=== PATIENT | female | born 1960 | race Caucasian/White ===

== ENCOUNTER 2023-09-13 11:18 | Outpatient (REF) | payer MEDICAID, SELFPAY ==
[2023-09-13 14:43] LABS: Alanine Aminotransferase 30 U/L (0-31); Albumin Level 4.9 g/dL (3.5-5.0); Alkaline Phosphatase 50 U/L (39-117); Anion Gap 13 (12-20); Aspartate Amino Transferase 32 U/L (5-31); Bilirubin Direct 0.4 mg/dL (0.0-0.5); Bilirubin Total 1.5 mg/dL (0.0-1.0); Blood Urea Nitrogen 17 mg/dL (9-16); Calcium 9.9 mg/dL (8.4-10.2); Carbon Dioxide 30 mmol/L (22-29); Chloride 100 mmol/L (96-108); Cholesterol 213 mg/dL (<200); Estimated Glomerular Filt Rate > 60; Glucose Random 89 mg/dL (60-115); HDL Cholesterol 53 mg/dL (>40); LDL Cholesterol Calculated 140 mg/dL (<100); Potassium 3.8 mmol/L (3.3-5.1); Sodium 139 mmol/L (135-145); Total Protein 8.2 g/dL (6.5-8.0); Triglycerides 104 mg/dL (<150)
== END 2023-09-13 11:19 | disposition home or self-care (01) ==
LOC: HO.CHCLDS 11:18
PROVIDERS: Visit Provider Student in an Organized Health Care Education/Training Program
DX: R03.0 Elevated blood-pressure reading, without diagnosis of hypertension (principal)
CPT/HCPCS: 36415; 80048; 80061; 80076

== ENCOUNTER 2024-11-26 10:19 | Outpatient (REF) | payer MEDICAID, SELFPAY ==
--- OUTSIDE RECORDS SUMMARY | 2024-11-26 11:20 | XMS_ITS | Encounter Summary ---
Author Organization [email or web address] Address [address] [facility] [address] [place] [address] Care Team Providers Care Gambreler Name Role Phone Ena Funk MD Primary Care Provider [phone] Encounter Details Date Type Department Care Team (Latest Contact Info) Description 11/26/2024 Travel Social History Tobacco Use Types Packs/Day Years Used Date Smoking Tobacco: Never Smokeless Tobacco: Never Alcohol Use Standard Drinks/Week Comments Never 0 (1 standard drink = 0.6 oz pur e alcohol) Depression Answer Date Recorded Patient Health Questionnaire-9 Score 3 02/28/2024 Patient Health Questionnaire-9 Score 3 02/28/2024 Last PHQ-9: Questionnaire Data Not on file 0 02/28/2024 Housing Stability Answer Date Recorded What is your housing situation today? I have joss lema 09/05/[address] you li ve. Do you have problems with any of the following? None of the above 09/05/2023 Food Insecurity Answer Date Recorded Within the past 12 months, y ou worried that your food would run out before you got money to buy more: Never True 09/05/2023 Within the past 12 months,th e food you bought just didn't last and you didn't have enough money to get more: Never True 11/2022 Transportation Answer Date Recorded In the past 12 months, has l ack of transportation kept you from medical appts, meetings, work or from getting things needed for daily living? No 09/05/2023 Utilities Answer Date Recorded In the past 12 months, has t he electric, gas, oil or water company threatened to shut off services in your home? No 09/05/2023 Depression Answer Date Recorded Patient Health Questionnaire-2 Score 1 02/28/2024 Comments No Sex and Gender Information Value Date Recorded Sex Assigned at Female 09/04/2022 10:20 AM EDT Legal Sex Female 10:20 AM EDT Gender Identity Female 09/04/2022 10:20 AM EDT Sexual Orientation Straight 09/04/2022 10 :20 AM EDT documented as of this encounter Plan of Treatment Upcoming Encounters Date Type Department Care Team (Late st Contact Info) Description 12/09/2024 1:00 PM EST Clinical Support [facility] [address] [place] [address] documented as of this encounter Visit Diagnoses Not on filedocumented in this encounter Additional Health Concerns Assessment Noted Time PHQ-9 Depression Total Score: 3 02/28/20 24 4:34 PM EDT documented as of this encounter Care Teams Gambreler Relationship Specialty Start Date End Date Ena Funk MD [address] [place] [id number] PCP - General Family Medicine 12/05/13 documented as of this encounter
--- OUTSIDE RECORDS SUMMARY | 2024-11-26 11:20 | XMS_ITS | Encounter Summary ---
Author Organization [employer] Address [address] [facility] [address] [place] [address] Care Team Providers Care Hydropulper Operator Name Role Phone Ena Funk MD Primary Care Provider [phone] Reason for Referral * Consultation (Routine) - Authorized Specialty Diagnoses / Procedures Referred By Renee vasquez Referred To Contact Midwifery Diagnoses Lichen sclerosus Ena Funk MD [address] [place] [address] Phone: tel: fax: Noelle Newton, [facility] [address] [place] [address] Phone: tel: fax: Referral ID Status Reason Start Date Expiration Date Visits Requested Visits Authorized [id number] Authorized Consult and Treat 11/26/2024 11/26/2025 1 1 * Imaging (Routine) - Authorized Specialty Diagnoses / Procedures Referred By Renee vasquez Referred To Contact Radiology Diagnoses Encounter for screening mammogram for breast cancer Procedures BI Mammogram Screening Tomosynthesis Bilateral Ena Funk MD [address] [place] [address] Phone: tel: fax: [facility] [address] [place] [address] Phone: tel: fax: Referral ID Status Reason Start Date Expiration Date V isits Requested Visits Authorized [id number] Authorized 11/26/2024 11/26/2025 1 1 Reason for Visit * Reason Comments Annual Exam Encounter Details Date Type Department Care Team (Late st Contact Info) Description 11/26/2024 9:30 AM EST Office Visit [facility] [address] [facility] [place] [address] Ena Funk MD [address] [place] [address] Elevated BP without diagnosis of hypertension (Primary Dx); PTSD (post-traumatic stress disorder); Encounter for screening for malignant neoplasm of colon; Encounter for screening mammogram for breast cancer; Screen for STD (sexually transmitted disease); Encounter for annual wellness visit; Lichen sclerosus Social History Tobacco Use Types Packs/Day Years Used Date Smoking Tobacco: Never Smokeless Tobacco: Never Tobacco Cessation:Counseling Given: Not Answered Alcohol Use Standard Drinks/Week Comments Never 0 [...] AM EDT documented as of this encounter Last Filed Vital Signs Vital Sign Reading Time Taken Comments Blood Pressure 158/102 11/26/2024 9:41 AM EST Pulse 72 11/26/2024 9:41 AM EST Temperature 36.6 ??C (97.9 ??F) 11/26/2024 9:41 AM ES T Respiratory Rate 20 11/26/2024 9:41 AM EST Oxygen Saturation 98% 11/26/2024 9:41 AM EST Inhaled Oxygen Concentration - - Weight 48.1 kg (106 lb) 11/26/2024 9:41 AM EST Height 154.9 cm (5' 1 ) 11/26/2024 9:41 AM EST Body Mass Index 20.03 11/26/2024 9:41 AM EST documented in this encounter Progress Notes * Ena Funk MD - 11/26/2024 9:30 AM EST Subjective Patient ID: Amandeep Woodruff is a 63 y.o. female who presents for Annual Exam. Is here for Annual PE Hypertension This is a recurrent problem. The problem is unchanged. Associated symptoms include anxiety. Pertinent negatives include no chest pain, headaches, neck pain, palpitations or shortness of breath. Risk factors: anxiety. Review of Systems Constitutional: Negative. Respiratory: Negative. Negative for shortness of breath. Cardiovascular: Negative for chest pain and palpitations. Gastrointestinal: Negative. Genitourinary: Negative. Musculoskeletal: Negative for neck pain. Neurological: Negative for headaches. Psychiatric/Behavioral: The patient is nervous/anxious. Objective Physical Exam Constitutional: Appearance: Normal appearance. HENT: Head: Normocephalic and atraumatic. Right Ear: Tympanic membrane normal. Left Ear: Tympanic membrane normal. Mouth/Throat: Mouth: Mucous membranes are moist. Eyes: Pupils: Pupils are equal, round, and reactive to light. Cardiovascular: Rate and Rhythm: Normal rate and regular rhythm. Pulmonary: Effort: Pulmonary effort is normal. Breath sounds: Normal breath sounds. Abdominal: General: Abdomen is flat. Palpations: Abdomen is soft. Musculoskeletal: General: Normal range of motion. Skin: General: Skin is warm. Neurological: General: No focal deficit present. Mental Status: She is alert. Psychiatric: Mood and Affect: Mood normal. Behavior: Behavior normal. Assessment/Plan Diagnoses and all orders for this visit: Elevated BP without diagnosis of hypertension Comments: White coat syndrome Advised to keep log of BP F/u in1 week with RN Maintain a low-sodium diet (less than 2 grams per day). Maintain a regular cardiovascular exercise program. Advised to maintain a low-fat, low-cholesterol diet. Counseled regarding importance of weight loss. Counseled re: potential co-morbidities including cardiovascular disease. Orders: - Basic Metabolic Panel; Future - Hepatic Function Panel; Future - Lipid Panel, Standard; Future PTSD (post-traumatic stress disorder) Comments: Much improved Encounter for screening for malignant neoplasm of colon Encounter for screening mammogram for breast cancer - BI Mammogram Screening Tomosynthesis Bilateral; Future Screen for STD (sexually transmitted disease) - HIV-1/2 Antigen and Antibodies, Fourth Generation, with Reflexes; Future - Hepatitis C Antibody with Reflex to HCV, RNA, Quantitative, Real-Time PCR; Future Encounter for annual wellness visit Lichen sclerosus Comments: referred to Noelle Orders: - Referral to Gynecology (Noelle); Future Other orders - Blood Pressure kit; Check blood pressure daily documented in this encounter Plan of Treatment Upcoming Encounters Date Type Department Care Team (Late st Contact Info) Description 12/09/2024 1:00 PM EST Clinical Support [facility] & P[facility] [address] [place] [phone] Scheduled Orders Name Type Priority Associated Diagnoses Orde r Schedule HIV-1/2 Antigen and Antibodies, Fourth Generation, with Reflexes Lab Routine Screen for STD (sexually transmitted disease) Expected: 11/26/2024 (Approximate), Expires: 11/26/2025 Hepatitis C Antibody with Reflex to HCV, RNA, Quantitative, Real-Time PCR Lab Routine Screen for STD (sexually transmitted disease) Expected: 11/26/2024, Expires: 11/26/2025 BI Mammogram Screening Tomosynthesis Bilateral Imaging Routine Encounter for screening mammogram for breast cancer Expected: 11/26/2024, Expires: 01/24/2026 Basic Metabolic Panel Lab Routine Elevated BP without diagnosis of hypertension Expected: 11/26/2024 (Approximate), Expires: 11/26/2025 Hepatic Function Panel Lab Routine Elevated BP without diagnosis of hypertension Expected: 11/26/2024 (Approximate), Expires: 11/26/2025 Lipid Panel, Standard Lab Routine Elevated BP without diagnosis of hypertension Expected: 11/26/2024 (Approximate), Expires: 11/26/2025 Scheduled Referrals Name Type Priority Associated Diagnoses Order Schedule Referral to Gynecology (Noelle) Outpatient Referral Routine Lichen sclerosus Expected: 11/26/2024 (Approximate), Expires: 11/26/2025 documented as of this encounter Visit Diagnoses Diagnosis Elevated BP without diagnosis of hypertension- Primary PTSD (post-traumatic stress disorder) Posttraumatic stress disorder Encounter for screening for malignant neoplasm of colon Encounter for screening mammogram for breast cancer Screen for STD (sexually transmitted disease) Screening examination for venereal disease Encounter for annual wellness visit Lichen sclerosus Circumscribed scleroderma documented in this encounter Additional Health Concerns Assessment Noted Time PHQ-9 Depression Total Score: 3 02/28/20 24 4:34 PM EDT documented as of this encounter Care Teams Hydropulper Operator Relationship Specialty Start Date End Date Ena Funk MD [address] [place] [id number] PCP - General Family Medicine 12/05/13 documented as of this encounter
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
--- OUTSIDE RECORDS SUMMARY | 2024-11-26 11:21 | XMS_ITS | Encounter Summary ---
Author Organization [email or web address] Address [address] [facility] [address]t [place] [address] Care Team Providers Care Chief Accounting Officer Name Role Phone Ena Funk MD Primary Care Provider [phone] Encounter Details Date Type Department Care Team (Latest Contact Info) Description 10/19/2021 Abstract [facility] CONVERSIONS Dental, Provider, DDS Social History Tobacco Use Types Packs/Day Years Used Date Smoking Tobacco: Never Assessed Comments Unknown Sex and Gender Information Value Date Recorded [...] Clinical Support [facility] [address] [place] [address] documented as of this encounter Visit Diagnoses Not on filedocumented in this encounter Care Teams Chief Accounting Officer Relationship Specialty Start Date End Date Ena Funk MD [address] [place] [id number] PCP - General Family Medicine 12/05/13 documented as of this encounter
--- OUTSIDE RECORDS SUMMARY | 2024-11-26 11:21 | XMS_ITS | Encounter Summary ---
Author Organization [employer] Address [address] [facility] [address] [place] [address] Care Team Providers Care Judge Name Role Phone Ena Funk MD Primary Care Provider Encounter Details Date Type Department Care Team (Latest Contact Info) Description 05/26/[address] [facility] CONVERSIONS Dental, Provider, DDS Social [...] Description 12/09/2024 1:00 PM EST Clinical Support [facility] [address] [place] [address] documented as of this encounter Visit Diagnoses Not on filedocumented in this encounter Care Teams Judge Relationship Specialty Start Date End Date Ena Funk MD [address] [place] [id number] PCP - General Family Medicine 12/05/13 documented as of this encounter
--- OUTSIDE RECORDS SUMMARY | 2024-11-26 11:21 | XMS_ITS | Encounter Summary ---
Author Organization [employer] Address [address] [facility] [address] [place] [address] Care Team Providers Care Line Maintainer Name Role Phone Ena Funk MD Primary Care Provider [phone] Reason for Visit * Reason Comments Pre-visit Planning SDOH unable to reach LVM Encounter Details Date Type Department Care Team ([facility] Contact Info) Description 11/17/2024 Patient Outreach [facility] [address] [place] [address] Ena Funk MD [address] [place] [address] Pre-visit Planning (SDOH unable to reach LVM) Social History Tobacco Use Types Packs/Day Years [...] Patient Health Questionnaire-2 Score 1 02/28/2024 Comments Unknown Sex and Gender Information Value Date Recorded Sex Assigned at Female 09/04/2022 10:20 AM EDT Legal Sex Female 10:20 AM EDT Gender Identity Female 09/04/2022 10:20 AM EDT Sexual Orientation Straight 09/04/2022 10 :20 AM EDT documented as of this encounter Progress Notes * Abimbola Alatorre - 11/17/2024 1:56 PM EST KATY Ross placed outbound call to patient to complete pre-visit planning. No answer at this time. Patient name and were not confirmed. CC left voicemail requesting return call. Direct contactinformation provided. documented in this encounter Plan of Treatment Upcoming Encounters Date Type Department Care Team (Late st Contact Info) Description 12/09/2024 1:00 PM EST Clinical Support [facility] MED & PEDS [address] [place] [address] documented as of this encounter Visit Diagnoses Not on filedocumented in this encounter Additional Health Concerns Assessment Noted Time PHQ-9 Depression Total Score: 3 02/28/20 24 4:34 PM EDT documented as of this encounter Care Teams Line Maintainer Relationship Specialty Start Date End Date Ena Funk MD [address] [place] [address] PCP - General Family Medicine 12/05/13 documented as of this encounter
--- OUTSIDE RECORDS SUMMARY | 2024-11-26 11:21 | XMS_ITS | Encounter Summary ---
Author Organization [employer] Address [address] [facility] [address] [place] [address] Care Team Providers Care Carpenter General Name Role Phone Ena Funk MD Primary Care Provider [phone] Reason for Visit * Reason Onset Date Comments Chart prep 11/25/2024 Encounter Details Date Type Department Care Team ([facility] st Contact Info) Description 11/25/2024 Telephone C [facility] [address] [place] [address] Ena Funk MD [address] [place] [address] Chart prep Social History Tobacco Use Types Packs/Day Years [...] AM EDT documented as of this encounter Miscellaneous Notes * Telephone Encounter - Pamela Saldivar [place] - 11/25/2024 2:14 PM EST Chart Prep Labs: done Images: done Vaccines due: yes Referrals: complete Screenings: colonoscopy , mammogram , STI screening Overdue care gaps: SDOH documented in this encounter Plan of Treatment Upcoming Encounters Date Type Department Care Team (Late st Contact Info) Description 12/09/2024 1:00 PM EST Clinical Support [facility] [address] [place] [address] documented as of this encounter Visit Diagnoses Not on filedocumented in this encounter Additional Health Concerns Assessment Noted Time PHQ-9 Depression Total Score: 3 02/28/20 24 4:34 PM EDT documented as of this encounter Care Teams Carpenter General Relationship Specialty Start Date End Date Ena Funk MD [address] [place] [id number] PCP - General Family Medicine 12/05/13 documented as of this encounter
[2024-11-26 14:40] LABS: Alanine Aminotransferase 17 U/L (0-31); Albumin Level 4.7 g/dL (3.5-5.0); Alkaline Phosphatase 53 U/L (39-117); Anion Gap 10 (12-20); Aspartate Amino Transferase 32 U/L (5-31); Bilirubin Direct 0.4 mg/dL (0.0-0.5); Bilirubin Total 1.5 mg/dL (0.0-1.0); Blood Urea Nitrogen 11 mg/dL (9-16); Calcium 10.1 mg/dL (8.4-10.2); Carbon Dioxide 30 mmol/L (22-29); Chloride 104 mmol/L (96-108); Cholesterol 192 mg/dL (<200); Estimated Glomerular Filt Rate > 60; Glucose Random 87 mg/dL (60-115); HDL Cholesterol 56 mg/dL (>40); LDL Cholesterol Calculated 118 mg/dL (<100); Potassium 4.4 mmol/L (3.3-5.1); Sodium 140 mmol/L (135-145); Total Protein 8.1 g/dL (6.5-8.0); Triglycerides 93 mg/dL (<150)
[2024-11-27 08:08] LABS: HIV AB/AG Nonreactive (Nonreactive); HIV Num 1 0.04 S/CO (0.00-0.99); ~HepC Num1 0.07 S/CO (0.00-0.79); ~Hepatitis C Antibody Nonreactive (Nonreactive)
== END 2024-11-26 10:20 | disposition home or self-care (01) ==
LOC: CF 10:19
PROVIDERS: Visit Provider Student in an Organized Health Care Education/Training Program
DX: R03.0 Elevated blood-pressure reading, without diagnosis of hypertension (principal); Z11.3 Encounter for screening for infections with a predominantly sexual mode of transmission
CPT/HCPCS: 36415; 80048; 80061; 80076; 86803; 87389